=== PATIENT | female | born 1990 | race American Indian/Alaskan Native ===

== ENCOUNTER 2017-03-19 17:52 | Emergency (ER) | payer MEDICAID ==
[2017-03-19 19:31] LABS: RBC URINE 9 /hpf (0-3); TRANSITIONAL EPITHIAL < 1 /hpf (0-3); URINE BACTERIA FEW (<OCC); URINE BILIRUBIN NEGATIVE (NEGATIVE); URINE COLOR Yellow (YELLOW); URINE GLUCOSE (UA) NORMAL (Normal); URINE KETONE NEGATIVE (NEGATIVE); URINE LEUKOCYTE ESTERASE 1+ Leu/uL (Negative); URINE PROTEIN 1+ mg/dL (NEGATIVE); URINE UROBILINOGEN NORMAL mg/dL (0.2-1.0); WBC URINE 9 /hpf (0-5)
[2017-03-19 19:32] LABS: URINE BLOOD 1+ (NEGATIVE)
[2017-03-19] MEDS ORDERED: Sodium Chloride 0.9% 1,000 ML IV ONE (19:32)
[2017-03-19] MEDS ORDERED: Sodium Chloride 0.9% 1,000 ML ONE (19:56)
--- NOTE | 2017-03-19 19:59 | C.PDOC ---
History Of Present Illness Patient presents to the ER with a complaint of abdominal pain and nausea that occurs after eating. Patient states it has worsened over the last 2 weeks, denies vomiting or diarrhea. Time Seen by Provider: 03/19/17 19:33 Chief Complaint (Nursing): GI Problem History Per: Patient History/Exam Limitations: no limitations Onset/Duration Of Symptoms: Days (14) Current Symptoms Are (Timing): Still Present Severity: Mild Pain Scale Rating Of: 3 Location Of Pain/Discomfort: Epigastric Radiation Of Pain To:: None Quality Of Discomfort: Unable To Describe Associated Symptoms: Nausea. denies: Vomiting, Diarrhea Exacerbating Factors: Other (Eating) Alleviating Factors: None Recent travel outside of the [place]: No Past Medical History Reviewed: Historical Data, Nursing Documentation, Vital Signs Vital Signs: Last Vital Signs Temp 98 F 03/19/17 20:23 Pulse 71 03/19/17 20:23 Resp 18 03/19/17 20:23 BP 124/84 03/19/17 20:23 Pulse Ox 99 03/19/17 20:23 - Medical History PMH: No Chronic Diseases Surgical History: No Surg Hx Family History: States: No Known Family Hx - Social History Hx Tobacco Use: No Hx Alcohol Use: No Hx Substance Use: No - Immunization History Hx Tetanus Toxoid Vaccination: No Hx Influenza Vaccination: No Hx Pneumococcal Vaccination: No Review Of Systems Constitutional: Negative for: Fever, Chills Eyes: Negative for: Redness ENT: Negative for: Throat Pain Cardiovascular: Negative for: Chest Pain, Palpitations Respiratory: Negative for: Shortness of Breath Gastrointestinal: Positive for: Nausea, Abdominal Pain. Negative for: Vomiting , Diarrhea Genitourinary: Negative for: Dysuria Musculoskeletal: Negative for: Back Pain Skin: Negative for: Rash, Lesions, Jaundice, Bruising Neurological: Negative for: Weakness Psych: Negative for: Anxiety Physical Exam - Physical Exam Appears: Non-toxic Skin: Warm, Dry Oral Mucosa: Moist Neck: Supple Chest: Symmetrical, No Tenderness Cardiovascular: Rhythm Regular, No Murmur Respiratory: No Rales, No Rhonchi, No Wheezing Gastrointestinal/Abdominal: Soft, Tenderness (Mild mid epigastric) Back: Normal Inspection Extremity: Normal ROM Extremity: Bilateral: Atraumatic, Normal Color And Temperature Neurological/Psych: Oriented x3 Gait: Steady ED Course And Treatment - Laboratory Results Result Diagrams: 03/19/17 20:02 03/19/17 20:02 O2 Sat by Pulse Oximetry: 100 (Room air) Pulse Ox Interpretation: Normal Progress Note: Blood work ordered. Zofran, protonix and IV fluids administered. Reevaluation Time: 21:17 Reassessment Condition: Improved Disposition Counseled Patient/Family Regarding: Studies Performed, Diagnosis, Need For Followup, Rx Given - Disposition Referrals: Jersey Fernandez MD [Staff Provider] - Disposition: HOME/ ROUTINE Disposition Time: 21:00 Condition: FAIR Prescriptions: Ondansetron ODT [Zofran ODT] 1 odt PO BID PRN #12 odt PRN Reason: Nausea/Vomiting Pantoprazole Sodium [Protonix] 20 mg PO DAILY #15 ect Instructions: Gastritis (DC) - Clinical Impression Clinical Impression: Gastritis - Scribe Statement The provider has reviewed the documentation as recorded by the Scribe Gerard Oh All medical record entries made by the Scribe were at my direction and personally dictated by me. I have reviewed the chart and agree that the record accurately reflects my personal performance of the history, physical exam, medical decision making, and the department course for this patient. I have also personally directed, reviewed, and agree with the discharge instructions and disposition.
[2017-03-19 20:06] LABS: BASO % 0.3 % (0.0-2.0); EOS # 0.1 K/uL (0.0-0.7); EOS % 1.6 % (0.0-4.0); HEMATOCRIT 42.1 % (34.0-47.0); LYMPH % 49.4 % (20.0-40.0); MEAN CELL VOLUME 91.9 fL (81.0-99.0); MEAN CORPUSCULAR HEMOGLOBIN 30.9 pg (27.0-31.0); MEAN CORPUSCULAR HGB CONC 33.6 g/dL (33.0-37.0); MONO # 0.4 K/uL (0.0-0.8); MONO % 5.3 % (0.0-10.0); RED CELL DISTRIBUTION WIDTH 13.1 % (11.5-14.5)
[2017-03-19 20:15] LABS: CHLORIDE 101 mmol/L (98-107); SODIUM 136 mmol/L (132-148)
[2017-03-19 20:17] LABS: GFR AFRICAN-AMERICAN > 60
[2017-03-19 20:18] LABS: ALB/GLOB RATIO 1.2 (1.0-2.1); ALKALINE PHOSPHATASE 49 U/L (38-126); ALT/SGPT 14 U/L (9-52); AST/SGOT 40 U/L (14-36); BILIRUBIN,TOTAL 1.2 mg/dL (0.2-1.3); BLOOD UREA NITROGEN 12 mg/dL (7-17); CALCIUM 9.5 mg/dl (8.6-10.4); CARBON DIOXIDE 25 mmol/L (22-30); GLUCOSE,RANDOM 80 mg/dL (65-105); POTASSIUM 4.9 mmol/L (3.6-5.2); TOTAL PROTEIN 8.4 g/dL (6.3-8.3)
[2017-03-19 20:24] VITALS: RESP 18
[2017-03-19 21:28] VITALS: BP 120/79; PULSE 69; TEMP 98.3; O2SAT 98
== END 2017-03-19 21:29 | disposition home or self-care (01) ==
LOC: C.ER 17:52
DX: K29.70 Gastritis, unspecified, without bleeding (principal)
CPT/HCPCS: 80053; 81001; 83690; 84703; 85025; 96361; 96374; 96375; 99285; C9113; J2405; J7040

== ENCOUNTER 2017-03-31 22:49 | Emergency (ER) | payer MEDICAID ==
[2017-03-31 23:18] VITALS: RESP 20; O2SAT 100
--- NOTE | 2017-04-01 00:16 | C.PDOC ---
History Of Present Illness Patient presents to the ER with a complaint of LLQ abdominal pain and left flank pain since last night. Patient has had similar symptoms in the past with negative work ups in this ER. Denies dysuria, hematuria, nausea or vomiting. Time Seen by Provider: 04/01/17 00:16 Chief Complaint (Nursing): Abdominal Pain History Per: Patient History/Exam Limitations: no limitations Onset/Duration Of Symptoms: Days (Since last night) Current Symptoms Are (Timing): Still Present Severity: Moderate Pain Scale Rating Of: 4 Location Of Pain/Discomfort: LLQ, Other (Left flank) Radiation Of Pain To:: None Quality Of Discomfort: Unable To Describe Associated Symptoms: denies: Nausea, Vomiting, Urinary Symptoms (Dysuria, hematuria) Exacerbating Factors: None Alleviating Factors: None Recent travel outside of the [place]: No Abnormal Vaginal Bleeding: No Past Medical History Reviewed: Historical Data, Nursing Documentation, Vital Signs Vital Signs: Last Vital Signs Temp 98.2 F 03/31/17 23:15 Pulse 98 H 03/31/17 23:15 Resp 20 03/31/17 23:15 BP 139/83 03/31/17 23:15 Pulse Ox 100 04/01/17 02:40 - Medical History PMH: No Chronic Diseases Surgical History: No Surg Hx Family History: States: No Known Family Hx - Social History Hx Tobacco Use: No Hx Alcohol Use: No Hx Substance Use: No - Immunization History Hx Tetanus Toxoid Vaccination: No Hx Influenza Vaccination: No Hx Pneumococcal Vaccination: No Review Of Systems Gastrointestinal: Positive for: Abdominal Pain (LLQ). Negative for: Nausea, Vomiting Genitourinary: Negative for: Dysuria, Hematuria Musculoskeletal: Positive for: Back Pain (Left flank) Physical Exam - Physical Exam Appears: Non-toxic Skin: Warm, Dry Head: Normacephalic Eye(s): bilateral: Normal Inspection Oral Mucosa: Moist Neck: Supple Chest: Symmetrical, No Tenderness Cardiovascular: Rhythm Regular, No Murmur Respiratory: No Rales, No Rhonchi, No Wheezing Gastrointestinal/Abdominal: Soft, No Tenderness, No Guarding, No Rebound Back: No CVA Tenderness Extremity: Bilateral: Atraumatic Neurological/Psych: Oriented x3, Normal Speech, Normal Cognition Gait: Steady ED Course And Treatment - Laboratory Results Result Diagrams: 04/01/17 00:44 04/01/17 00:44 O2 Sat by Pulse Oximetry: 100 (Room air) Pulse Ox Interpretation: Normal Progress Note: CT abd/pel with IV contrast ordered. Morphine, zofran and IV fluids administered. Reevaluation Time: 02:36 Reassessment Condition: Improved Medical Decision Making Medical Decision Making: Upon provider reevaluation patient is feeling better, is medically stable, and requires no further treatment in the ED at this time. Patient will be discharged home with Rx for bentyl, miralax, macrobid. Counseling was provided and all questions were answered regarding diagnosis and need for follow up with dr fernandez. There is agreement to discharge plan. Return if symptoms persist or worsen. Disposition Counseled Patient/Family Regarding: Studies Performed, Diagnosis, Need For Followup, Rx Given - Disposition Referrals: Jersey Fernandez MD [Staff Provider] - Disposition: HOME/ ROUTINE Disposition Time: 00:16 Condition: FAIR Additional Instructions: Please return if symptoms recur Prescriptions: Dicyclomine [Dicyclomine HCl] 10 mg PO TID #15 cap Nitrofurantoin Macrocrystals [Macrobid] 1 cap PO BID #14 cap Polyethylene Glycol 3350 [Miralax] 17 gm PO DAILY #270 ml Instructions: Constipation (DC), Urinary Tract Infection in Women (DC), Gas and Bloating (ED), Abdominal Pain (ED) - Clinical Impression Clinical Impression: Constipation, Abdominal pain, UTI (urinary tract infection) - Scribe Statement The provider has reviewed the documentation as recorded by the Scribe Gerard Oh All medical record entries made by the Scribe were at my direction and personally dictated by me. I have reviewed the chart and agree that the record accurately reflects my personal performance of the history, physical exam, medical decision making, and the department course for this patient. I have also personally directed, reviewed, and agree with the discharge instructions and disposition.
[2017-04-01] MEDS ORDERED: Sodium Chloride 0.9% 1,000 ML IV ONE (00:30)
[2017-04-01] MEDS ORDERED: Morphine 4 MG/ML VIAL ONE (00:38)
[2017-04-01 00:48] LABS: BASO % 0.2 % (0.0-2.0); EOS % 0.3 % (0.0-4.0); HEMATOCRIT 38.3 % (34.0-47.0); LYMPH # 1.1 K/uL (1.0-4.3); LYMPH % 12.9 % (20.0-40.0); MEAN CELL VOLUME 93.3 fL (81.0-99.0); MEAN CORPUSCULAR HEMOGLOBIN 30.8 pg (27.0-31.0); MEAN PLATELET VOLUME 7.9 fL (7.2-11.7); MONO # 0.1 K/uL (0.0-0.8); MONO % 1.6 % (0.0-10.0); RED CELL DISTRIBUTION WIDTH 13.7 % (11.5-14.5); WHITE BLOOD COUNT 8.6 K/uL (4.8-10.8)
[2017-04-01 00:58] LABS: CHLORIDE 101 mmol/L (98-107); SODIUM 139 mmol/L (132-148)
[2017-04-01 00:59] LABS: POTASSIUM 3.6 mmol/L (3.6-5.2); RBC URINE 27 /hpf (0-3); URINE BACTERIA OCC (<OCC); URINE BILIRUBIN NEGATIVE (NEGATIVE); URINE BLOOD 2+ (NEGATIVE); URINE COLOR Yellow (YELLOW); URINE GLUCOSE (UA) NORMAL (Normal); URINE KETONE NEGATIVE (NEGATIVE); URINE LEUKOCYTE ESTERASE 3+ Leu/uL (Negative); URINE PROTEIN 1+ mg/dL (NEGATIVE); URINE UROBILINOGEN NORMAL mg/dL (0.2-1.0); WBC URINE 99 /hpf (0-5)
[2017-04-01 01:01] LABS: ALB/GLOB RATIO 1.1 (1.0-2.1); ALKALINE PHOSPHATASE 62 U/L (38-126); ALT/SGPT 18 U/L (9-52); AST/SGOT 26 U/L (14-36); BILIRUBIN,TOTAL 0.8 mg/dL (0.2-1.3); BLOOD UREA NITROGEN 11 mg/dL (7-17); CALCIUM 9.2 mg/dl (8.6-10.4); CARBON DIOXIDE 28 mmol/L (22-30); GFR AFRICAN-AMERICAN > 60; GLUCOSE,RANDOM 94 mg/dL (65-105); TOTAL PROTEIN 7.3 g/dL (6.3-8.3)
[2017-04-01] MEDS ORDERED: Iodixanol 320 MG/ML 100 ML BOTTLE IV ONE (01:45)
--- NOTE | 2017-04-01 02:30 | CT ---
EXAM: CT Abdomen and Pelvis With Intravenous Contrast CLINICAL HISTORY: 26 years old, female; Pain; Abdominal pain; Patient HX: 7-17-15; Additional info: Abd pain. Report for prior faxed TECHNIQUE: Axial computed tomography images of the abdomen and pelvis with intravenous contrast. This CT exam was performed using one or more of the following dose reduction techniques: automated exposure control, adjustment of the mA and/or kV according to patient size, and/or use of iterative reconstruction technique. Coronal and sagittal reformatted images were created and reviewed. CONTRAST: 100 mL of [id number] administered intravenously. COMPARISON: Prior report of 06/29/2016. Minimal reticular opacity posteriorly at left lung base. FINDINGS: Lower thorax: No acute findings. ABDOMEN: Liver: Unremarkable. No mass. Gallbladder and bile ducts: Unremarkable. No calcified stones. No ductal dilation. Pancreas: Unremarkable. No mass. No ductal dilation. Spleen: Unremarkable. No splenomegaly. Adrenals: Unremarkable. No mass. Kidneys and ureters: Unremarkable. No solid mass. No hydronephrosis. Stomach and bowel: Stomach is fluid-filled. No evidence of small bowel obstruction. Moderate to large amount of retained stool in colon. Appendix: The appendix is unremarkable. PELVIS: Bladder: Unremarkable. No mass. Reproductive: Unremarkable as visualized. ABDOMEN and PELVIS: Intraperitoneal space: Unremarkable. No free air. No significant fluid collection. Bones/joints: Minimal right SI joint sclerosis. No acute fracture. No dislocation. Soft tissues: Unremarkable. Vasculature: Unremarkable. No abdominal aortic aneurysm. Lymph nodes: Unremarkable. No enlarged lymph nodes. IMPRESSION: 1. Minimal asymmetric right SI joint sclerosis. 2. No acute abnormality in the abdomen, or pelvis. 3. Moderate to large amount retained stool. Correlate for constipation. 4. Remainder of findings as above.
[2017-04-01 02:44] VITALS: BP 100/57; PULSE 91; TEMP 97.1
== END 2017-04-01 04:41 | disposition home or self-care (01) ==
LOC: C.ER 22:49
DX: N39.0 Urinary tract infection, site not specified (principal); K59.00 Constipation, unspecified; R10.32 Left lower quadrant pain
CPT/HCPCS: 74177; 80053; 81001; 83690; 84703; 85025; 96361; 96374; 96375; 99285; J1885; J2270; J2405; J7040; Q9967

== ENCOUNTER 2017-06-13 20:52 | Emergency (ER) | payer MEDICAID ==
[2017-06-13 21:13] VITALS: BP 119/68; PULSE 64; RESP 18; TEMP 98.2; O2SAT 99
[2017-06-13 22:03] LABS: RBC URINE 3 /hpf (0-3); URINE BACTERIA RARE (<OCC); URINE BILIRUBIN NEGATIVE (NEGATIVE); URINE BLOOD NEGATIVE (NEGATIVE); URINE CALCIUM OXALATE CRYSTALS RARE /hpf (<OCC); URINE COLOR Yellow (YELLOW); URINE GLUCOSE (UA) NORMAL (Normal); URINE KETONE TRACE mg/dL (NEGATIVE); URINE LEUKOCYTE ESTERASE NEG Leu/uL (Negative); URINE PROTEIN NEGATIVE (NEGATIVE); WBC URINE 5 /hpf (0-5)
--- NOTE | 2017-06-13 22:31 | C.PDOC ---
History Of Present Illness 26 y/o female presents to ER for a test. Pt reports missed period in april and had a positive test at home 1 week ago then few days later started bleeding for a few days. Pt denies abdominal pain, and is no longer bleeding. Has appt in 2 days with her OB/ Linux Support Engineer. Time Seen by Provider: 06/13/17 21:37 Chief Complaint (Nursing): Female Genitourinary History Per: Patient History/Exam Limitations: no limitations Past Medical History Vital Signs: Last Vital Signs Temp 98.2 F 06/13/17 21:13 Pulse 64 06/13/17 21:13 Resp 18 06/13/17 21:13 BP 119/68 06/13/17 21:13 Pulse Ox 99 06/13/17 22:31 - Medical History PMH: No Chronic Diseases Family History: States: Unknown Family Hx - Social History Hx Tobacco Use: No Hx Alcohol Use: No Hx Substance Use: No - Immunization History Hx Tetanus Toxoid Vaccination: No Hx Influenza Vaccination: No Hx Pneumococcal Vaccination: No Review Of Systems Gastrointestinal: Negative for: Nausea, Vomiting, Abdominal Pain Genitourinary: Negative for: Vaginal Bleeding Physical Exam - Physical Exam Appears: Well, No Acute Distress Eye(s): bilateral: Normal Inspection Gastrointestinal/Abdominal: Normal Exam Neurological/Psych: Oriented x3 ED Course And Treatment - Laboratory Results Urine POC: Sent To The Lab For Verification (negative) O2 Sat by Pulse Oximetry: 99 Pulse Ox Interpretation: Normal Progress Note: Pt is stable, no abd pain or vag bleed. test is negative. Pt advised OB follow up Disposition Counseled Patient/Family Regarding: Diagnosis, Need For Followup - Disposition Disposition: HOME/ ROUTINE Disposition Time: 22:30 Condition: STABLE Additional Instructions: PLease follow up with your SLOT FLOOR PERSON Return to ER as needed Forms: General Discharge Instructions - Clinical Impression Clinical Impression: Negative test
== END 2017-06-13 22:33 | disposition home or self-care (01) ==
LOC: C.ER 20:52
DX: Z32.02 Encounter for pregnancy test, result negative (principal)

== ENCOUNTER 2017-07-30 12:35 | Emergency (ER) | payer MEDICAID ==
[2017-07-30 14:19] VITALS: BP 96/59; PULSE 73; RESP 18; TEMP 97.8; O2SAT 99
--- NOTE | 2017-07-30 17:54 | C.PDOC ---
History Of Present Illness 26 year old female presents to the ED with complaints of a "typical migraine headache," photophobia, and phonophobia beginning earlier today. Patient reports she took ibuprofen this morning and vomited. She notes headache is not the worst of her life and denies fever or changes in vision. Time Seen by Provider: 07/30/17 12:48 Chief Complaint (Nursing): Headache History Per: Patient History/Exam Limitations: no limitations Onset/Duration Of Symptoms: Hrs Current Symptoms Are (Timing): Still Present Associated Symptoms: Photophobia. denies: Blurred Vision, Nausea, Vomiting, Extremity Weakness Recent travel outside of the [place]: No Past Medical History Reviewed: Historical Data, Nursing Documentation, Vital Signs Vital Signs: Last Vital Signs Temp 97.8 F 07/30/17 13:50 Pulse 73 07/30/17 13:50 Resp 18 07/30/17 13:50 BP 96/59 L 07/30/17 13:50 Pulse Ox 99 07/30/17 17:55 Family History: States: Unknown Family Hx - Social History Hx Tobacco Use: No Hx Alcohol Use: No Hx Substance Use: No - Immunization History Hx Tetanus Toxoid Vaccination: No Hx Influenza Vaccination: Yes Hx Pneumococcal Vaccination: No Review Of Systems Constitutional: Negative for: Fever, Chills Eyes: Positive for: Other (photophobia ) ENT: Positive for: Other (phonophobia ) Gastrointestinal: Negative for: Nausea, Vomiting Musculoskeletal: Negative for: Neck Pain Neurological: Positive for: Headache. Negative for: Weakness, Numbness Physical Exam - Physical Exam Appears: Non-toxic, No Acute Distress Skin: Warm, Dry Head: Atraumatic, Normacephalic, No Tenderness, No Swelling, No Abrasion, No Laceration Eye(s): bilateral: Normal Inspection, PERRL, EOMI Ear(s): Bilateral: Normal Oral Mucosa: Moist Neck: Normal ROM, No Midline Cervical Tenderness, No Paracervical Tenderness, Supple Cardiovascular: Rhythm Regular, No Murmur Respiratory: No Rales, No Rhonchi, No Wheezing, Other (clear to auscultation bilaterally ) Extremity: Normal ROM, No Tenderness Neurological/Psych: Oriented x3, Normal Speech, Normal Cognition, Normal Cranial Nerves, No Cerebellar Signs, Normal Motor, Normal Sensation ED Course And Treatment O2 Sat by Pulse Oximetry: 99 (RA) Progress Note: Patient was given Toradol and Reglan. Disposition - Disposition Referrals: [facility] Mina Adrianalindsay, [Non-Staff] - Disposition: HOME/ ROUTINE Disposition Time: 13:10 Condition: GOOD Additional Instructions: Thank you for letting us take care of you today. Your provider was Dr. Everett. You were treated for a migraine headache. The emergency medical care you received today was directed at your acute symptoms. If you were prescribed any medication, please fill it and take as directed. It may take several days for your symptoms to resolve. Return to the Emergency Department if your symptoms worsen, do not improve, or if you have any other problems. Please contact your doctor or call one of the physicians/clinics you have been referred to that are listed on the Patient Visit Information form that is included in your discharge packet. Bring any paperwork you were given at discharge with you along with any medications you are taking to your follow up visit. Our treatment cannot replace ongoing medical care by a primary care provider (PCP) outside of the emergency department. Thank you for allowing the [facility] team to be part of your care today. Follow up with your primary doctor in 1-2 days for re-evaluation and further management. Prescriptions: Ibuprofen [Motrin] 600 mg PO Q6 PRN #20 tab PRN Reason: Pain, Moderate (4-7) Instructions: Migraine Headache (ED) Forms: [employer] (Tamazight) - Clinical Impression Clinical Impression: Migraine - Scribe Statement The provider has reviewed the documentation as recorded by the Scribe Natalya Brown All medical record entries made by the Scribe were at my direction and personally dictated by me. I have reviewed the chart and agree that the record accurately reflects my personal performance of the history, physical exam, medical decision making, and the department course for this patient. I have also personally directed, reviewed, and agree with the discharge instructions and disposition.
== END 2017-07-30 13:50 | disposition home or self-care (01) ==
LOC: C.ER 12:35
DX: G43.909 Migraine, unspecified, not intractable, without status migrainosus (principal)
CPT/HCPCS: 96372; 99284; J1885; J2765

== ENCOUNTER 2017-12-29 09:25 | Emergency (ER) | payer MEDICAID ==
[2017-12-29 09:46] VITALS: BMI 33.0
[2017-12-29 10:38] LABS: SQUAMOUS EPITHIAL 23 /hpf (0-5); URINE BILIRUBIN NEGATIVE (NEGATIVE); URINE BLOOD NEGATIVE (NEGATIVE); URINE CLARITY Hazy (Clear); URINE COLOR Yellow (YELLOW); URINE GLUCOSE (UA) NORMAL (Normal); URINE LEUKOCYTE ESTERASE TRACE Leu/uL (Negative); URINE PROTEIN NEGATIVE (NEGATIVE); URINE UROBILINOGEN NORMAL mg/dL (0.2-1.0)
[2017-12-29 15:05] VITALS: BP 108/65; PULSE 83; O2SAT 97
--- NOTE | 2017-12-29 21:40 | OBHP ---
Datetime: 12/29/2017 10:45 IP Admit Plan: Discharge home Admit Comment, IP Provider: Araceli CC: I had strong stomach pain last night that happened again this morning, and my baby wasnt moving when I woke up. The pain leaves me nauseous. HPI: Patient is a 27 year old at 26 weeks gestation, due date April 02, [facility]. Sh e states that last night at rest, she had sharp pain 10/10 that started on her LLQ abdomen and radiat ed to her RLQ and back. It lasted 3 minutes and left her feeling nauseous. Afterwards, her stomach fe lt like it was squeezing very tightly. Upon waking at 7AM, she experienced the same pain and residual nausea. She was alarmed that she did not feel her baby move at that time, which is what usually wake s her in the morning. This has never happened before. She endorses an episode of diarrhea this misael marte. Denies eating new foods or sexual activity within the last 24 hours; however admits to consuming t acos within the last week. Pain is currently 5/10 and she states she feels nauseous and like she has to throw up. Denies sick contacts. Patient denies v/c. Patient saw her Ob at [facility] yest gregg. movement: yes Vaginal bleeding: denies Contractions: denies ROM: denies Ob Hx: Son born vaginally 2011 at 40 weeks + 4 days. 4 day labor. Epidural. No complications. Daughter born vaginally at 42 weeks. Epidural. No complications. Obgyn at [facility], started care at 12 weeks Life Science Teacher Hx: Last pap: 2016- WNL Menarche: 10 yo Regular cycles, 30 days Cycles last: 4 days Contraception prior to : nuvaring STIs: denies PMHx: treated for UTI at first visit 2016, antibiotics given, follow-up urinalysis n egative. Denies all else. Medications: vitamins Allergies: denies food, environmental, drug allergies. SurgeryHx: denies Fam Hx: Mom: DM. Dad: denies. Paternal grandmother: breast cx. Paternal grandfather: cx of unknown type. SocialHx: Lives with her 2 kids. Works as a mail room clerk. Alcohol: denies Tobacco: denies Recreational drugs: denies PE: see exam section cervix closed/thick and high Pedunculated lesion measuring _2 inches long at right midline anterior gluteal fold. Patient unsur e of diagnosis. Was told by her Obgyn that it cannot be removed until after . Patient states it continues to grow with . Assessment and Plan: Patient with c/o abdominal pain and nausea.no active labor.suspevct gastroentritis UA neg for ketoens ornitrites or le.BP normal discharge home Avoid greasy and spicy foods Consume bland foods, gatorade/gingerale for 48-72 hours Keep f/u appointment with her Obgyn in 2 weeks Return to ED if any alarming symptoms. Pelvic Type - PN: Adequate Extremities - PN: Normal Abdomen - PN: Normal Back - PN: Normal Lungs - PN: Normal Heart - PN: Normal Neurologic - PN: Normal General - PN: Normal Presentation-Admit: Vertex Contraction Comments Provider: none Gestation - Est Wks by US: 26.4 Vital Signs Provider: Reviewed FHR Category Provider Fetus A: Category I Dilatation, Provider: 0 Genitourinary Exam: Normal DTRs - PN: Normal
== END 2017-12-29 11:00 | disposition home or self-care (01) ==
LOC: C.EROB 09:25
DX: O26.92 Pregnancy related conditions, unspecified, second trimester (principal); R10.9 Unspecified abdominal pain; Z3A.26 26 weeks gestation of pregnancy

== ENCOUNTER 2018-04-02 09:58 | Inpatient (IN) | payer MEDICAID ==
[2018-04-02] MEDS ORDERED: Penicillin G 5 Million Unit Vial IVPB ONE ×2 (12:29→12:49)
[2018-04-02] MEDS ORDERED: Lactated Ringer's 1,000 ML IV ONE (12:35)
[2018-04-02] MEDS ORDERED: Oxytocin 20 units in LR 2,000 ML IV ONE (12:49)
[2018-04-02 13:15] LABS: BASO % 0.3 % (0.0-2.0); EOS % 0.5 % (0.0-4.0); HEMOGLOBIN 12.9 g/dL (11.0-16.0); LYMPH # 2.2 K/uL (1.0-4.3); LYMPH % 26.5 % (20.0-40.0); MEAN CELL VOLUME 92.7 fL (81.0-99.0); MEAN CORPUSCULAR HEMOGLOBIN 32.4 pg (27.0-31.0); MEAN PLATELET VOLUME 8.2 fL (7.2-11.7); MONO # 0.5 K/uL (0.0-0.8); MONO % 5.9 % (0.0-10.0); NEUT # 5.6 K/uL (1.8-7.0); NEUT % 66.8 % (50.0-75.0); NRBC % 0.1 % (0.0-2.0); RBC 3.96 Mil/uL (3.80-5.20); RED CELL DISTRIBUTION WIDTH 14.6 % (11.5-14.5); WHITE BLOOD COUNT 8.4 K/uL (4.8-10.8)
[2018-04-02 13:20] LABS: SQUAMOUS EPITHIAL 1 /hpf (0-5); URINE BILIRUBIN NEGATIVE (NEGATIVE); URINE BLOOD NEGATIVE (NEGATIVE); URINE CLARITY Clear (Clear); URINE COLOR Straw (YELLOW); URINE GLUCOSE (UA) NORMAL (Normal); URINE LEUKOCYTE ESTERASE NEG Leu/uL (Negative); URINE PROTEIN NEGATIVE (NEGATIVE); URINE UROBILINOGEN NORMAL mg/dL (0.2-1.0)
[2018-04-02] MEDS ORDERED: Bupivacaine HCl/FentaNYL Cit 100 ML EPI ONE ×2 (13:38→20:42)
[2018-04-02] MEDS ORDERED: Bupivacaine HCl 0.25% PF (30 ml) Inj ONE (13:39)
[2018-04-02 13:50] LABS: BLOOD UREA NITROGEN 8 mg/dL (7-17); CALCIUM 9.4 mg/dl (8.6-10.4); GFR AFRICAN-AMERICAN > 60; GFR NON-AFRICAN AMERICAN > 60
[2018-04-02] MEDS ORDERED: Oxytocin 30 UNIT 30 UNITS/500 ML BAG IV ONE (15:05)
--- NOTE | 2018-04-02 15:14 | CP.PCM.HP ---
History of Present Illness - History of Present Illness History of Present Illness: 27 yo female with an IUP at 40 weeks and presented with c/o of contractions, moderate back and upper tight pains. Denies LOF or vaginal bleeding. Admits to adequate FM Present on Admission - Present on Admission History of DVT/PE: No History of Uncontrolled Diabetes: No Urinary Catheter: No Decubitus Ulcer Present: No Review of Systems - Review of Systems All systems: reviewed and no additional remarkable complaints except (pain) - Constitutional Constitutional: As Per HPI - EENT Eyes: absent: As Per HPI, Blind Spots, Blurred Vision, Change in Vision, Decreased Night Vision, Diplopia, Discharge, Dry Eye, Exophthalmos, Floaters, Irritation, Itchy Eyes, Loss of Peripheral Vision, Pain, Photophobia, Requires Corrective Lenses, Sees Flashes, Spots in Vision, Tunnel Vision, Other Visual Disturbances, Loss of Vision, Other Ears: absent: As Per HPI, Decreased Hearing, Ear Discharge, Ear Pain, Tinnitus, Abnormal Hearing, Disequilibrium, Dizziness, Other Nose/Mouth/Throat: absent: As Per HPI, Epistaxis, Nasal Congestion, Nasal Discharge, Nasal Obstruction, Nasal Trauma, Nose Pain, Post Nasal Drip, Sinus Pain, Sinus Pressure, Bleeding Gums, Change in Voice, Dental Pain, Dry Mouth, Dysphagia, Halitosis, Hoarsness, Lip Swelling, Mouth Lesions, Mouth Pain, Odynophagia, Sore Throat, Throat Swelling, Tongue Swelling, Facial Pain, Neck Pain, Neck Mass, Other - Breasts Breasts: absent: As Per HPI, Change in Shape, Mass, Pain, Nipple Discharge, Nipple Inversion, Skin Changes, Swelling, Other - Respiratory Respiratory: absent: As Per HPI, Cough, Dyspnea, Hemoptysis, Dyspnea on Exertion , Wheezing, Snoring, Stridor, Pain on Inspiration, Chest Congestion, Excessive Mucous Production, Change in Mucous Color, Pain with Coughing, Other - Gastrointestinal Gastrointestinal: absent: As Per HPI, Abdominal Pain, Belching, Bloating, Change in Bowel Habits, Change in Stool Character, Coffee Ground Emesis, Constipation, Cramping, Diarrhea, Dyspepsia, Dysphagia, Early Satiety, Excessive Flatus, Fecal Incontinence, Heartburn, Hematemesis, Hematochezia, Loose Stools, Melena, Nausea, Odynophagia, Temesmus, Vomiting, Other - Genitourinary Genitourinary: absent: As Per HPI, Change in Urinary Stream, Difficulty Urinating, Dysuria, Flank Pain, Hematuria, Pyuria, Nocturia, Urinary Incontinence, Urinary Frequency, Urinary Hesitance, Urinary Urgency, Voiding Freq/Small Amts, Freq UTI, Hx Renal/Bladder Calculi, Hx /Renal Surgery, Bladder Distension, Other - Reproductive: Female Reproductive:Female: As Per HPI - Menstruation Menstruation: As Per HPI - Integumentary Integumentary: absent: As Per HPI, Acne, Alopecia, Bleeding Lesions, Change in Hair, Change in Nails, Change in Pigmentation, Changing Lesions, Dry Skin, Erythema, Furuncle, Hirsutism, Lesions, New Lesions, Non-Healing Lesions, Photosensitivity, Pruritus, Rash, Skin Pain, Skin Ulcer, Sores, Striae, Swelling , Unusual Bruising, Wounds, Jaundice, Other - Neurological Neurological: absent: As Per HPI, Abnormal Gait, Abnormal Hearing, Abnormal Movements, Abnormal Speech, Behavioral Changes, Burning Sensations, Confusion, Convulsions, Disequilibrium, Dizziness, Numbness, Focal Weakness, Frequent Falls , Headaches, Lack of Coordination, Loss of Vision, Memory Loss, Paresthesias, Radicular Pain, Restless Legs, Sensory Deficit, Syncope, Tingling, Tremor, Vertigo, Weakness, Other Visual Disturbances, Other - Psychiatric Psychiatric: absent: As Per HPI, Abnormal Sleep Pattern, Anhedonia, Anxiety, Auditory Hallucinations, Behavioral Changes, Change in Appetite, Change in Libido, Confusion, Depression, Difficulty Concentrating, Hallucinations, Homicidal Ideation, Hopelessness, Irritability, Memory Loss, Mood Swings, Panic Attacks, Paranoia, Suicidal Ideation, Visual Hallucinations, Tactile Hallucinations, Other - Endocrine Endocrine: absent: As Per HPI, Change in Body Appearance, Change in Libido, Cold Intolorance, Deepening of Voice, Excessive Sweating, Fatigue, Flushing, Heat Intolorance, Increase in Ring/Shoe/Hat Size, Palpitations, Polydipsia, Polyphagia, Polyuria, Other - Hematologic/Lymphatic Hematologic: absent: As Per HPI, Easy Bleeding, Easy Bruising, Lymphadenopathy, Other Past Patient History - Infectious Disease Hx of Infectious Diseases: None - Past Medical History & Family History Past Family History: Reviewed and not pertinent - Past Social History Smoking Status: Never Smoked Chewing Tobacco Use: No Cigar Use: No Alcohol: None Drugs: Denies Home Situation {Lives}: With Family Domestic Violence: Negative - CARDIAC Hx Cardiac Disorders: No - PULMONARY Hx Respiratory Disorders: No - NEUROLOGICAL Hx Neurological Disorder: No - HEENT Hx HEENT Problems: No - RENAL Hx Chronic Kidney Disease: No Hx Kidney Stones: No - ENDOCRINE/METABOLIC Hx Endocrine Disorders: No - HEMATOLOGICAL/ONCOLOGICAL Hx Blood Disorders: No - INTEGUMENTARY Hx Dermatological Problems: No - MUSCULOSKELETAL/RHEUMATOLOGICAL Hx Musculoskeletal Disorders: No - GASTROINTESTINAL Hx Gastrointestinal Disorders: No - GENITOURINARY/GYNECOLOGICAL Hx Genitourinary Disorders: No - PSYCHIATRIC Hx Psychophysiologic Disorder: No Hx Substance Use: No - SURGICAL HISTORY Hx Surgeries: No - ANESTHESIA Hx Anesthesia: No Hx Anesthesia Reactions: No Hx Malignant Hyperthermia: No Meds Allergies/Adverse Reactions: Allergies Allergy/AdvReac Type Severity Reaction Status Date / Time No Known Allergies Allergy Verified 07/30/17 12:39 Physical Exam - Head Exam Head Exam: NORMAL INSPECTION - Eye Exam Eye Exam: Normal appearance - ENT Exam ENT Exam: Mucous Membranes Moist - Neck Exam Neck exam: Positive for: Full Rom - Respiratory Exam Respiratory Exam: NORMAL BREATHING PATTERN - Cardiovascular Exam Cardiovascular Exam: REGULAR RHYTHM - GI/Abdominal Exam GI & Abdominal Exam: Distended - Rectal Exam Rectal Exam: Deferred - Exam Exam: NORMAL INSPECTION External exam: NORMAL EXTERNAL EXAM Speculum exam: NORMAL SPECULUM EXAM Bimanual exam: NORMAL BIMANUAL EXAM - Extremities Exam Extremities exam: Positive for: normal inspection - Neurological Exam Neurological exam: Alert, Oriented x3, Reflexes Normal - Skin Skin Exam: Dry, Normal Color Results - Labs Result Diagrams: 04/02/18 13:01 04/02/18 13:20 Labs: Laboratory Results - last 24 hr 04/02/18 04/02/18 04/02/18 13:01 13:01 13:01 WBC 8.4 RBC 3.96 Hgb 12.9 Hct 36.7 MCV 92.7 MCH 32.4 H MCHC 35.0 RDW 14.6 H Plt Count 244 MPV 8.2 Neut % (Auto) 66.8 Lymph % (Auto) 26.5 [place] % (Auto) 5.9 Eos % (Auto) 0.5 Baso % (Auto) 0.3 Neut # (Auto) 5.6 Lymph # (Auto) 2.2 [place] # (Auto) 0.5 Eos # (Auto) 0.0 Baso # (Auto) 0.0 Sodium Potassium Chloride Carbon Dioxide Anion Gap BUN Creatinine Est GFR ( Amer) Est GFR (Non-Af Amer) Random Glucose Calcium Urine Color Straw Urine Clarity Clear Urine pH 6.0 Ur Specific Orrum 1.002 L Urine Protein Negative Urine Glucose (UA) Normal Urine Ketones Negative Urine Blood Negative Urine Nitrate Negative Urine Bilirubin Negative Urine Urobilinogen Normal Ur Leukocyte Esterase Neg Urine WBC (Auto) 1 Ur Squamous Epith Cells 1 Blood Type A POSITIVE Antibody Screen Negative 04/02/18 13:20 WBC RBC Hgb Hct MCV MCH MCHC RDW Plt Count MPV Neut % (Auto) Lymph % (Auto) [place] % (Auto) Eos % (Auto) Baso % (Auto) Neut # (Auto) Lymph # (Auto) [place] # (Auto) Eos # (Auto) Baso # (Auto) Sodium 135 Potassium 4.2 Chloride 102 Carbon Dioxide 23 Anion Gap 14 BUN 8 Creatinine 0.5 L Est GFR ( Amer) > 60 Est GFR (Non-Af Amer) > 60 Random Glucose 72 Calcium 9.4 Urine Color Urine Clarity Urine pH Ur Specific Orrum Urine Protein Urine Glucose (UA) Urine Ketones Urine Blood Urine Nitrate Urine Bilirubin Urine Urobilinogen Ur Leukocyte Esterase Urine WBC (Auto) Ur Squamous Epith Cells Blood Type Antibody Screen Assessment & Plan - Assessment and Plan (Free Text) Assessment: IUP at term Early labor Hx of fast labors + GBS culture tracing reassuring
[2018-04-02] MEDS ORDERED: Oxytocin 30 UNIT 30 UNITS/500 ML BAG IV SCH (15:45)
[2018-04-02] MEDS: Lactated Ringer's 1,000 ML IV SCH (17:22)
--- NOTE | 2018-04-02 18:41 | OBHP ---
Datetime: 04/02/2018 18:29 IP Adm Impression: Term, intrauterine ; Intact Membranes IP Admit Plan: Admit to unit; Observation/Evaluation Admit Comment, IP Provider: 27 yo female with an IUP at 40 weeks Presented in early labor with painful contractions and significant back pain Hx of fast labors Requesting an Epidural + GBS culture Will continue monitoring and admit if progress in labor Pelvic Type - PN: Adequate Extremities - PN: Normal Abdomen - PN: Normal Back - PN: Normal Breast - PN: Normal Lungs - PN: Normal Heart - PN: Normal Thyroid - PN: Normal Neurologic - PN: Normal HEENT - PN: Normal General - PN: Normal Weight - Estimated: ABOUT 3400 GRAMS Presentation-Admit: Vertex FHR - Baseline A Provider: 140 Membranes, Provider: Intact Contraction Comments Provider: 5-6 MINS Gestation - Est Wks by US: 40.0 EGA AdmitDate IP: 40.0 Vital Signs Provider: Reviewed; Within Normal Limits IP Chief Complaint: Uterine contractions NICHD Variability Prov Fetus A: Moderate 6-25bpm NICHD Accel Fetus A IP Provider: 15X15 FHR Category Provider Fetus A: Category I NICHD Decel Fetus A IP Provider: None Dilatation, Provider: 1 Effacement, Provider: 30 Station, Provider: -3 Genitourinary Exam: Normal DTRs - PN: Normal Datetime: 12/29/2017 10:45 IP Chief Complaint Other: Hx of fst labors + GBS culture
--- NOTE | 2018-04-02 18:55 | OBADHP ---
Datetime: 04/02/2018 18:43 Admit Comment, IP Provider: Admit for labor and delivery Pitocin was started for augmentation of labor Hx of fast labors Anticipate a vaginal delivery Pelvic Type - PN: Adequate Extremities - PN: Normal Abdomen - PN: Normal Back - PN: Normal Breast - PN: Normal Lungs - PN: Normal Heart - PN: Normal Thyroid - PN: Normal Neurologic - PN: Normal HEENT - PN: Normal General - PN: Normal Weight - Estimated: around 3400 grams Presentation-Admit: Vertex FHR - Baseline A Provider: 130-150 Membranes, Provider: Intact Contraction Comments Provider: Q2-3 mins Comments, ACOG Physical Exam: Still was very uncomfortable with pain and she was given an Epidural u juanita admission Gestation - Est Wks by US: 40.0 Vital Signs Provider: Reviewed IP Chief Complaint: Uterine contractions; Maternal discomfort NICHD Variability Prov Fetus A: Moderate 6-25bpm NICHD Accel Fetus A IP Provider: 15X15 FHR Category Provider Fetus A: Category I NICHD Decel Fetus A IP Provider: None Dilatation, Provider: 2-3 Effacement, Provider: 50-60 Station, Provider: -3 Genitourinary Exam: Normal DTRs - PN: Normal EGA AdmitDate IP: 40.0 IP Adm Impression: Term, intrauterine ; Intact Membranes IP Admit Plan: Admit to unit; Initiate labor protocol Datetime: 12/29/2017 10:45 IP Chief Complaint Other: Hx of fst labors + GBS culture
--- NOTE | 2018-04-02 20:59 | OBPN ---
Datetime: 04/02/2018 20:51 IP Progress Impression: Reassuring heart rate; Rupture of membranes IP Informed Consent Obtain: Vaginal Delivery; Risks, Benefits and Alternatives Discussed IP Procedures: Artificial ROM; Intrauterine Pressure Catheter; Scalp Electrode; Sterile Vag Ex am IP Progress Plan: Augmentation; Antibiotic therapy; Anticipate Vaginal Delivery Membranes, Provider: Ruptured Amniotic Fluid Color, Provider: Bloody Contraction Comments Provider: 3-4 mins FHR - Baseline A Provider: 130 Gestation - Est Wks by US: 40.0 Weight - Estimated: about 3400 grams Presentation-Admit: Vertex IP Progress Note Comment: AROM with return of bloody fluid but no meconium IUPC and ISL placed with ease UC's with 10 Units of Pitocin and Q 2-3 minutes and up to 40 mmHg. Slow labor progress and will increase Pitocin as indicated VSS, Afebrile Anticipate a vaginal delivery Vital Signs Provider: Reviewed; Within Normal Limits NICHD Accel Fetus A IP Provider: 10X10 NICHD Variability Prov Fetus A: Moderate 6-25bpm Dilatation, Provider: 3 Effacement, Provider: 70 Station, Provider: -2/-3 NICHD Decel Fetus A IP Provider: None Datetime: 04/02/2018 18:43 FHR Category Provider Fetus A: Category I
[2018-04-03] MEDS: Lactated Ringer's 1,000 ML IV SCH ×2 (01:25→03:00)
[2018-04-03] MEDS ORDERED: Bupivacaine HCl/FentaNYL Cit 100 ML EPI ONE (03:41)
[2018-04-03] MEDS ORDERED: Bupivacaine HCl 0.25% PF (30 ml) Inj ONE (03:41)
--- NOTE | 2018-04-03 03:45 | OBPN ---
Datetime: 04/03/2018 03:07 IP Procedures Other: Scalp electrode replaced IP Progress Impression Other: Protracted labor IP Procedures: Intrauterine Pressure Catheter; Scalp Electrode IP Progress Plan: Augmentation; Antibiotic therapy Membranes, Provider: Ruptured Amniotic Fluid Color, Provider: Bloody Contraction Comments Provider: Q 1-2 mins bet 40-50 mmHg FHR - Baseline A Provider: 130-140 IP Fetus A Comments: Few Variables and earlies noted Gestation - Est Wks by US: 40.0 Weight - Estimated: about 3400 grams Presentation-Admit: Vertex IP Progress Note Comment: Scalp electrode reapplied and working well FHT's reassuring Will decrease Pitocin to 10 mu/min to decrease hyperstimulation Pt states that her last baby weighted 8 lbs Epidural working well Discussed with patient protracted labor at this time and possibility of requiring a C/S and all of her questions were answered to her full satisfaction. NICHD Accel Fetus A IP Provider: 10X10 FHR Category Provider Fetus A: Category I NICHD Variability Prov Fetus A: Moderate 6-25bpm Dilatation, Provider: 4 Effacement, Provider: 90 Station, Provider: -3 NICHD Decel Fetus A IP Provider: Variable
[2018-04-03] MEDS ORDERED: Oxytocin 30 UNIT 30 UNITS/500 ML BAG IV ONE (05:24)
--- NOTE | 2018-04-03 05:35 | OBPN ---
Datetime: 04/03/2018 05:15 IP Progress Impression: Reassuring heart rate; Rupture of membranes IP Procedures: Sterile Vag Exam IP Progress Plan: Augmentation Membranes, Provider: Ruptured Contraction Comments Provider: Q 2-3 mins FHR - Baseline A Provider: 120 Presentation-Admit: Vertex IP Progress Note Comment: Pitocin at 12 mU/min with an adequate Labor pattern Protracted labor/Slow progress Epidural working well Hope for a vaginal delivery Vital Signs Provider: Reviewed NICHD Accel Fetus A IP Provider: 15X15 NICHD Variability Prov Fetus A: Moderate 6-25bpm Dilatation, Provider: 5 Effacement, Provider: 100 Station, Provider: -2 NICHD Decel Fetus A IP Provider: Early
--- NOTE | 2018-04-03 08:36 | OBPN ---
Datetime: 04/03/2018 08:29 IP Progress Impression: Normal progression of labor; Non-reassuring heart rate IP Progress Plan: Anticipate Vaginal Delivery Membranes, Provider: Ruptured FHR - Baseline A Provider: 150 Gestation - Est Wks by US: 40.1 Presentation-Admit: Vertex IP Progress Note Comment: ppt seen and exaiend rperots some intermitten pressure s/p epidural VSS VE 10cm EFM: 140/mod char, intermitte variest toco; q 5 min A/P G3P@ @ 40.1 wks fully dilated -oxgyen, left lateral, ivh d/c pitocoin -start pushing and anticipate Vital Signs Provider: Reviewed NICHD Variability Prov Fetus A: Moderate 6-25bpm Dilatation, Provider: 10 Effacement, Provider: 100 Station, Provider: 0
[2018-04-03] MEDS ORDERED: Oxycodone/Acetaminophen 5/325 mg Tab PO PRN ×2 (11:44)
--- NOTE | 2018-04-03 11:53 | OBDS ---
MATERNAL INFORMATION Provider Comments: pt was fully dilated. atramatic, spontaneous delivery of head in OP position. tig ht nuchal cord x 1 reduced. atrumatic, spontanoeus delivery of anterior followed by posteiro shoulder followed by delivery of the body. umbilical cord was clamped adn cut. baby handed to nurse. Oxygen given - see nurse notes. Cord blood and cord gases collected and sent x 2. Spontanoues delivery of in tact placenta with membranes. Fundus firm, good hemostais. right periurethral laceration noted adn r epaired wih 3-0 chormic. goo dhemostais, no cmpliatins. live male agpar 2, 9 ebl 300 ml LABOR SUMMARY EDC: 04/02/2018 00:00 No. Babies in Womb: 1 LABOR INFORMATION Onset of Labor: 04/02/2018 09:00 Group B Beta Strep: Positive (Annotations: 03/11/18) MEMBRANES Membranes Rupture Method: Artificial Rupture of Membranes: 04/02/2018 20:37 Amniotic Fluid Color: Clear Amniotic Fluid Odor: Normal
[2018-04-04 08:34] LABS: EOS # 0.1 K/uL (0.0-0.7); EOS % 0.4 % (0.0-4.0); HEMOGLOBIN 11.5 g/dL (11.0-16.0); LYMPH # 2.2 K/uL (1.0-4.3); LYMPH % 11.2 % (20.0-40.0); MEAN CELL VOLUME 93.2 fL (81.0-99.0); MEAN CORPUSCULAR HEMOGLOBIN 31.6 pg (27.0-31.0); MEAN CORPUSCULAR HGB CONC 33.9 g/dL (33.0-37.0); MEAN PLATELET VOLUME 7.7 fL (7.2-11.7); MONO # 1.2 K/uL (0.0-0.8); NEUT # 16.5 K/uL (1.8-7.0); NEUT % 82.4 % (50.0-75.0); PLATELET COUNT 218 K/uL (130-400); RBC 3.63 Mil/uL (3.80-5.20); RED CELL DISTRIBUTION WIDTH 14.8 % (11.5-14.5)
--- NOTE | 2018-04-04 10:13 | OBPPN ---
Datetime: 04/04/2018 10:11 PP Pain Prov: Within normal limits PP Nausea Prov: Denies PP Flatus Prov: Yes PP BM Prov: No PP Breasts Prov: Normal PP Heart Prov: Normal PP Lungs Prov: Normal PP Abdomen/Uterus Prov: Normal PP Lochia Prov: Normal PP Vulva/Perineum Prov: Normal PP CVA Tenderness Prov: Normal PP Extremities Prov: Normal PP C/S Incision Prov: Not Applicable PP Progress Prov: Normal PP Impression Prov: Normal progression PP Plan Prov: Continue present management PP Progress Note Prov: pt seen and examiend and reports pain contorlled with medication. pt dnie [place] y fever, chills, nasue, vomiting, cp, sob. pt voiding, passigfn flatus. bottle feedng adn denie sany feelings of sadness or depression. pt preorts when she walks uanble to bear pressureon left eg. VSS PE see above a/P s/p PPD #1 with left hip pain f/u pelvic xray pain manamgnet out of bed, ambulation with asisstance regular diet am labs enocurage breast feeding Vital Signs Provider PP: Reviewed; Within Normal Limits
[2018-04-04 11:34] LABS: BANDS 4 % (0-2); LYMPHOCYTE 12 % (20-40); METAMYELOCYTE 1 % (0-0); MONOCYTE 3 % (0-10); NEUTROPHIL 80 % (50-75); TOTAL CELLS COUNTED 100
[2018-04-04 11:35] LABS: ANISOCYTOSIS SLIGHT; PLATELET ESTIMATE NORMAL (NORMAL); POIKILOCYTOSIS SLIGHT
--- NOTE | 2018-04-04 13:54 | RAD ---
PROCEDURE: Radiographs of the pelvis. HISTORY: s/p r/o pubic symphysis separation COMPARISON: None. FINDINGS: BONES: The pelvic ring is intact. There is no acute displaced fracture or bone destruction. Bone alignment is normal. JOINTS: The inter pubic distance measures 6.3 mm. Both sacroiliac joints are normal. OTHER FINDINGS: None. IMPRESSION: No acute fracture or dislocation. The internal pubic distance measures 6.3 mm which is within normal limits for this age group.
[2018-04-04 14:32] LABS: BASO % 0.1 % (0.0-2.0); EOS # 0.1 K/uL (0.0-0.7); EOS % 0.3 % (0.0-4.0); HEMOGLOBIN 11.1 g/dL (11.0-16.0); LYMPH # 2.9 K/uL (1.0-4.3); LYMPH % 15.9 % (20.0-40.0); MEAN CELL VOLUME 93.2 fL (81.0-99.0); MEAN CORPUSCULAR HEMOGLOBIN 31.6 pg (27.0-31.0); MEAN CORPUSCULAR HGB CONC 33.9 g/dL (33.0-37.0); MEAN PLATELET VOLUME 7.7 fL (7.2-11.7); MONO % 5.3 % (0.0-10.0); NEUT # 14.3 K/uL (1.8-7.0); NEUT % 78.4 % (50.0-75.0); RBC 3.5 Mil/uL (3.80-5.20); RED CELL DISTRIBUTION WIDTH 14.8 % (11.5-14.5); WHITE BLOOD COUNT 18.3 K/uL (4.8-10.8)
[2018-04-04 16:35] VITALS: O2SAT 99
[2018-04-05 07:38] LABS: BASO % 0.3 % (0.0-2.0); EOS # 0.1 K/uL (0.0-0.7); EOS % 1.1 % (0.0-4.0); HEMOGLOBIN 10.5 g/dL (11.0-16.0); LYMPH # 3.4 K/uL (1.0-4.3); LYMPH % 27.1 % (20.0-40.0); MEAN CELL VOLUME 93.2 fL (81.0-99.0); MEAN CORPUSCULAR HEMOGLOBIN 32.7 pg (27.0-31.0); MEAN CORPUSCULAR HGB CONC 35.1 g/dL (33.0-37.0); MEAN PLATELET VOLUME 7.9 fL (7.2-11.7); MONO # 0.7 K/uL (0.0-0.8); MONO % 5.5 % (0.0-10.0); NEUT # 8.4 K/uL (1.8-7.0); RBC 3.22 Mil/uL (3.80-5.20); RED CELL DISTRIBUTION WIDTH 14.7 % (11.5-14.5); WHITE BLOOD COUNT 12.7 K/uL (4.8-10.8)
[2018-04-05 09:39] VITALS: BP 111/74; TEMP 97.9
--- NOTE | 2018-04-05 11:01 | OBPPN ---
Datetime: 04/05/2018 10:54 PP Pain Prov: Within normal limits PP Nausea Prov: Denies PP Flatus Prov: Yes PP BM Prov: Yes PP Abdomen/Uterus Prov: Normal PP Lochia Prov: Normal PP Extremities Prov: Normal PP Progress Prov: Normal PP Comments Phys Exam Prov: ABD: Soft, Uterus beleow Umbilicus. PP Impression Prov: Normal progression PP Plan Prov: Continue present management; Discharge PP Progress Note Prov: Pt doing well. Pain in her Rt leg improved. X ray negative.Most likely muscul ar.Repeat CBC - h/H stable with declining WBC count.. Discharge instructions discussed. F/U in the clinic in 6 wks or earlier if needed.
--- NOTE | 2018-04-05 11:16 | OBDCSUM ---
Datetime: 04/05/2018 09:04 Discharged to, Provider: Home Follow up at, Provider: [facility] Disch Instr Activity: Normal activity; May Shower Disch Instr Diet: Regular Discharge Diet restrict Prov: none Discharge Instructions, Provider: Routine instructions given Discharge Diagnosis, Provider: Term Delivered Follow up in weeks, Provider: 6wks Disch Referrals: None Contraception discussed, Prov: Yes Disch Activity Restrictions: No exercising; No lifting; No sexual activity; Nothing in vagina - Inte rcourse, tampons, douche Discharge Comment, Provider: Pt had deficulty walking, But improved today. X ray negative. F/U in 6 wks or earlier if symptoms doesn't impove completely.
[2018-04-05 21:41] VITALS: PULSE 68; RESP 18
== END 2018-04-05 17:05 | disposition home or self-care (01) | DRG 373 ==
LOC: C.EROB 09:58 → C.4D 12:13 → C.4M 04-03 14:30
PROVIDERS: ADMIT Obstetrics & Gynecology; ATTEND Obstetrics & Gynecology
PROC: 10E0XZZ Delivery of Products of Conception, External Approach (ICD-10-PCS; principal; 2018-04-03)
PROC: 0UQMXZZ Repair Vulva, External Approach (ICD-10-PCS; 2018-04-03)
PROC: 10907ZC Drainage of Amniotic Fluid, Therapeutic from Products of Conception, Via Natural or Artificial Opening (ICD-10-PCS; 2018-04-03)
DX: O69.1XX0 Labor and delivery complicated by cord around neck, with compression, not applicable or unspecified (principal); O99.820 Streptococcus B carrier state complicating pregnancy; O76 Abnormality in fetal heart rate and rhythm complicating labor and delivery; O71.82 Other specified trauma to perineum and vulva; Z3A.40 40 weeks gestation of pregnancy; Z37.0 Single live birth